=== PATIENT | female | born 1925 | race Caucasian/White ===

== ENCOUNTER 2016-08-10 21:33 | Emergency (ER) | payer MEDICARE, MEDICAID ==
--- NOTE | 2016-08-10 22:08 | ED Physician Chart ---
Chief Complaint/HPI - Patient Information Date Seen:: 08/10/16 Time Seen:: 21:50 Chief Complaint:: fall History of Present Illness:: Patient apparently found beside her bed on the floor. She initially denied any injury and then set her buttocks hurt when she subsequently retracted. The crusted abrasion on the right side of her nose is apparently old and was caused by scratching her nose. Allergies:: Allergies Allergy/AdvReac Type Severity Reaction Status Date / Time MDX SULFA (sulfonamide) Allergy Verified 06/10/12 16:03 [SULFA (sulfonamide)] Historian:: Patient, EMS Review:: Nurse's Note Reviewed, Old Chart Reviewed Review of Systems - Review of Systems General/Constitutional: No fever, No chills Skin: Skin lesions, Other (a crusted abrasion right side of nose) Head: No headache Eyes: No loss of vision ENT: No earache Neck: No neck pain Cardio Vascular: No chest pain, No palpitations Pulmonary: No SOB GI: No nausea, No vomiting G/U: No dysuria Musculoskeletal: No bone or joint pain Endocrine: No polyuria Psychiatric: Prior psych history Hematopoietic: No bruising Neurological: No syncope Past Medical History - Past Medical History Past Medical History: Dementia, Other (psychosis) Family History: Other (unavailable) Social History: Care Facility Surgical History: other Psychiatricy History: Dementia Medication: Reviewed Physical Exam - Physical Examination General/Constitutional: Well-developed, well-nourished, Alert Other Gen/Cons comments:: Patient is combative; strikes out resisting exam Head: Atraumatic Eyes: Lids, conjuctiva normal Other Skin comments:: Crush injury right side of nose ENMT: External ears, nose nl Neck: No nuchal rigidity Respiratory: Nl effort/Exclusion Cardio Vascular: RRR GI: No tenderness/rebounding/guarding : No CVA tenderness Extremities: Normal digits & nails Neuro/Psych: No focal deficits Misc: Normal back Assessment - Assessment General Assessment: I ordered a KUB after noting on the AP of the pelvis that the colon was distended. However patient is combative and did not allow the KUB to be done. ED Septic Shock - . Is Septic Shock (SBP<90, OR Lactate>4 mmol\L) present?: No Reassessment (Disposition) - Reassessment Reassessment Condition:: Unchanged - Diagnosis Diagnosis:: Fall without injury - Aftercare/Follow up Instructions Aftercare/Follow-Up Instructions:: Refer to Discharge Instructions - Patient Disposition Discharge/Transfer:: [facility] - [facility]F Condition at Disposition:: Stable, Unchanged
--- NOTE | 2016-08-11 09:41 | Diagnostic Imaging Report ---
Pelvis (single view) HISTORY: Pain Exam demonstrates a markedly distended stool-filled rectum. Additional mild to moderately dilated loops of small bowel are seen. There is a right hip arthroplasty. Degenerative changes noted about the left hip. Degenerative changes also seen in the visualized lower lumbar spine. No acute bony abnormalities. IMPRESSION: 1. No acute bony abnormalities 2. Right hip arthroplasty 3. Degenerative changes about the left hip and visualized lower lumbar spine 4. Distended stool-filled rectum mild to moderately dilated bowel loops. Changes suggest a fecal impaction.
== END 2016-08-11 01:37 ==
LOC: ER 21:33
DX: Z02.89 Encounter for other administrative examinations (principal); Z88.2 Allergy status to sulfonamides
CPT/HCPCS: 72170-TC; Z7502